=== PATIENT | male | born 1990 | race Caucasian/White ===

== ENCOUNTER 2017-10-18 02:44 | Inpatient (IN) | payer OTHER ==
[2017-10-18 04:35] LABS: ADD MAN DIFF? NO
[2017-10-18 04:39] LABS: WHITE BLOOD COUNT 9.4 10^3/ul (4.8-10.8)
[2017-10-18 04:39] LABS: BASOPHILS % 0.4 % (0.0-2.0); EOSINOPHILS # 0.1 10^3/ul (0.0-0.5); EOSINOPHILS % 0.5 % (0.0-7.0); HEMATOCRIT 46.2 % (42.0-52.0); HEMOGLOBIN 16.1 g/dl (14.0-18.0); LYMPHOCYTES # 2.3 10^3/ul (0.8-2.9); LYMPHOCYTES % 24.8 % (15.0-51.0); MEAN CORPUSCULAR HEMOGLOBIN 30.1 pg (29.0-33.0); MEAN CORPUSCULAR HGB CONC 34.8 g/dl (32.0-37.0); MEAN CORPUSCULAR VOLUME 86.5 fl (82.0-101.0); MEAN PLATELET VOLUME 9.9 fl (7.4-10.4); MONOCYTES % 10.6 % (0.0-11.0); NEUTROPHILS % 63.5 % (39.0-77.0); PLATELET COUNT 154 10^3/UL (140-415); RED BLOOD COUNT 5.34 10^6/ul (4.70-6.10); RED CELL DISTRIBUTION WIDTH 12.7 % (11.5-14.5)
[2017-10-18 04:53] LABS: CREATINE KINASE 1152 IU/L (23-200)
[2017-10-18 04:57] LABS: ALANINE AMINOTRANSFERASE 80 IU/L (13-69); ALBUMIN 4.1 g/dl (3.3-4.9); ALBUMIN/GLOBULIN RATIO 1.41; ALKALINE PHOSPHATASE 95 IU/L (42-121); ANION GAP 15 (8-16); ASPARTATE AMINO TRANSFERASE 114 IU/L (15-46); BLOOD UREA NITROGEN 9 mg/dl (7-20); C-REACTIVE PROTEIN 3.4 mg/dl (0.0-0.9); CALCIUM 8.7 mg/dl (8.4-10.2); CARBON DIOXIDE 30 mmol/L (21-31); CHLORIDE 103 mmol/L (97-110); CREATININE 0.92 mg/dl (0.61-1.24); GLUCOSE 107 mg/dl (70-220); POTASSIUM 3.6 mmol/L (3.5-5.1); SODIUM 144 mmol/L (135-144)
[2017-10-18 05:05] LABS: CK INDEX 5.4
[2017-10-18] MEDS: SOD CHLORIDE 0.9% 1,000 ML IV ×2 (05:27→17:42)
[2017-10-18] MEDS: morphine 4 MG/ML VIAL IV (05:28)
[2017-10-18] MEDS: ASPIRIN 325 MG TAB PO ×4 (05:28→22:53)
[2017-10-18 06:37] LABS: ERYTHROCYTE SEDIMENTATION RATE 10 mm/Hr (0-15)
[2017-10-18] MEDS: ONDANSETRON 4 MG INJ IV (07:07)
[2017-10-18] MEDS: KETOROLAC 30 MG INJ IV (07:08)
[2017-10-18] MEDS: HYDROmorphONE 0.5 MG/0.5 ML SYG IV (07:09)
[2017-10-18 07:14] LABS: AMPHETAMINE/METHAMPHETAMINE Negative (NEGATIVE); BARBITURATES Negative (NEGATIVE); BENZODIAZEPINES Negative (NEGATIVE); CANNABINOIDS Negative (NEGATIVE); COCAINE Negative (NEGATIVE); OPIATES Positive (NEGATIVE)
[2017-10-18 08:37] LABS: HAAIG REFLEX REFLEX FILED
[2017-10-18] MEDS: COLCHICINE 0.6 MG TAB PO ×2 (09:00→10:49)
[2017-10-18 09:49] LABS: HIV 1&2 ANTIBODY NEGATIVE (NEGATIVE)
[2017-10-18 10:18] LABS: ERYTHROCYTE SEDIMENTATION RATE 12 mm/Hr (0-15)
[2017-10-18 10:41] LABS: C-REACTIVE PROTEIN 2.7 mg/dl (0.0-0.9)
[2017-10-18 11:21] LABS: HEPATITIS B SURFACE ANTIGEN NEGATIVE (NEGATIVE)
[2017-10-18 11:39] LABS: HEPATITIS B CORE ANTIBODY NEGATIVE (NEGATIVE); HEPATITIS C VIRAL ANTIBODY NEGATIVE (NEGATIVE)
[2017-10-18] MEDS ORDERED: METOPROLOL 50 MG TAB PO (12:30)
[2017-10-18] MEDS: PANTOPRAZOLE (EC) 40 MG TAB PO ×2 (12:58→17:42)
[2017-10-18] MEDS: METOPROLOL 50 MG TAB PO ×3 (13:00→23:24)
[2017-10-18] MEDS: ENOXAPARIN 100 MG/ML SYG SC (13:10)
[2017-10-18 13:43] LABS: CREATINE KINASE 2882 IU/L (23-200)
[2017-10-18 13:47] LABS: CK INDEX 5.1
[2017-10-18] MEDS: SOD CHLORIDE 0.9% 250 ML IV (16:30)
[2017-10-18 18:23] LABS: CREATINE KINASE 2494 IU/L (23-200)
[2017-10-18] MEDS: ATORVASTATIN 20 MG TAB PO (20:54)
[2017-10-18] MEDS: ACETAMINOPHEN 325 MG TAB PO (23:25)
[2017-10-19] MEDS: NITROGLYCERIN (SL) 0.4 MG TAB SL ×3 (00:10→00:21)
[2017-10-19] MEDS: morphine 2 MG INJ IV (00:31)
[2017-10-19] MEDS ORDERED: morphine 2 MG INJ IV ×2 (01:00→15:30)
[2017-10-19] MEDS ORDERED: ZOLPIDEM 5 MG TAB PO (01:00)
[2017-10-19 03:47] LABS: ADD MAN DIFF? NO
[2017-10-19 04:09] LABS: ANION GAP 14 (8-16); BLOOD UREA NITROGEN 6 mg/dl (7-20); CALCIUM 8.6 mg/dl (8.4-10.2); CARBON DIOXIDE 26 mmol/L (21-31); CHLORIDE 107 mmol/L (97-110); CREATININE 0.69 mg/dl (0.61-1.24); GLUCOSE 125 mg/dl (70-220); POTASSIUM 3.6 mmol/L (3.5-5.1); SODIUM 143 mmol/L (135-144)
[2017-10-19 04:10] LABS: BASOPHILS % 0.2 % (0.0-2.0); EOSINOPHILS % 0.4 % (0.0-7.0); HEMATOCRIT 42.4 % (42.0-52.0); HEMOGLOBIN 14.7 g/dl (14.0-18.0); LYMPHOCYTES # 2.7 10^3/ul (0.8-2.9); LYMPHOCYTES % 25.9 % (15.0-51.0); MEAN CORPUSCULAR HEMOGLOBIN 30.4 pg (29.0-33.0); MEAN CORPUSCULAR HGB CONC 34.7 g/dl (32.0-37.0); MEAN CORPUSCULAR VOLUME 87.8 fl (82.0-101.0); MEAN PLATELET VOLUME 10.2 fl (7.4-10.4); MONOCYTE # 0.7 10^3/ul (0.3-0.9); MONOCYTES % 6.6 % (0.0-11.0); NEUTROPHIL # 6.8 10^3/ul (1.6-7.5); NEUTROPHILS % 66.5 % (39.0-77.0); PLATELET COUNT 151 10^3/UL (140-415); RED BLOOD COUNT 4.83 10^6/ul (4.70-6.10); RED CELL DISTRIBUTION WIDTH 13.1 % (11.5-14.5)
[2017-10-19 04:10] LABS: PHOSPHORUS 3.2 mg/dl (2.5-4.9); WHITE BLOOD COUNT 10.2 10^3/ul (4.8-10.8)
[2017-10-19 05:44] LABS: MAGNESIUM 1.8 mg/dl (1.7-2.5)
[2017-10-19 05:44] LABS: CREATINE KINASE 4427 IU/L (23-200)
[2017-10-19 05:45] LABS: CK INDEX 4.4
[2017-10-19] MEDS: SOD CHLORIDE 0.9% 1,000 ML IV ×3 (05:46→18:35)
[2017-10-19] MEDS: ASPIRIN 325 MG TAB PO ×3 (05:47→21:20)
[2017-10-19] MEDS: ACETAMINOPHEN 500 MG TAB PO (05:48)
[2017-10-19] MEDS: PANTOPRAZOLE (EC) 40 MG TAB PO ×2 (05:48→18:33)
[2017-10-19] MEDS: METOPROLOL 50 MG TAB PO ×2 (05:49→11:51)
[2017-10-19] MEDS ORDERED: MAGNESIUM SULFATE 2 GM/50 ML 50 ML IVPB (10:30)
[2017-10-19] MEDS: POTASSIUM CHLORIDE (SR) 20 MEQ TAB PO (10:38)
[2017-10-19] MEDS: MAGNESIUM SULFATE 2 GM/50 ML 50 ML IVPB ×2 (10:38→15:40)
[2017-10-19] MEDS: COLCHICINE 0.6 MG TAB PO (10:38)
[2017-10-19 11:07] LABS: MAGNESIUM 1.9 mg/dl (1.7-2.5)
[2017-10-19 11:07] LABS: POTASSIUM 4.1 mmol/L (3.5-5.1)
[2017-10-19] MEDS ORDERED: METOPROLOL 5 MG INJ ×4 (11:24→13:29)
[2017-10-19] MEDS: METOPROLOL 5 MG INJ IV (11:30)
[2017-10-19] MEDS: SOD CHLORIDE 0.9% 500 ML IV (12:03)
[2017-10-19] MEDS: SOD CHLORIDE 0.9% 100 ML (13:45)
[2017-10-19] MEDS: IOHEXOL 350MG/ML 50 ML BTL (13:45)
[2017-10-19] MEDS: IOHEXOL 100 ML (13:45)
[2017-10-19] MEDS ORDERED: morphine LIQ (10 MG/5 ML) CUP PO (14:00)
[2017-10-19] MEDS: NITROGLYCERIN AEROSOL (4.9 GM) (15:10)
[2017-10-19 15:56] LABS: CK INDEX 5.1; CREATINE KINASE 2537 IU/L (23-200)
[2017-10-19] MEDS: METOPROLOL 25 MG TAB PO (21:00)
[2017-10-19] MEDS: ATORVASTATIN 20 MG TAB PO (21:19)
[2017-10-20] MEDS: SOD CHLORIDE 0.9% 1,000 ML IV ×2 (01:32→08:22)
[2017-10-20 05:50] LABS: ADD MAN DIFF? NO
[2017-10-20 05:56] LABS: WHITE BLOOD COUNT 7.7 10^3/ul (4.8-10.8)
[2017-10-20 05:56] LABS: BASOPHILS % 0.4 % (0.0-2.0); EOSINOPHILS # 0.1 10^3/ul (0.0-0.5); EOSINOPHILS % 1.8 % (0.0-7.0); HEMOGLOBIN 14.2 g/dl (14.0-18.0); LYMPHOCYTES % 39.1 % (15.0-51.0); MEAN CORPUSCULAR HEMOGLOBIN 30.3 pg (29.0-33.0); MEAN CORPUSCULAR HGB CONC 33.8 g/dl (32.0-37.0); MEAN CORPUSCULAR VOLUME 89.6 fl (82.0-101.0); MEAN PLATELET VOLUME 9.9 fl (7.4-10.4); MONOCYTE # 0.6 10^3/ul (0.3-0.9); MONOCYTES % 7.5 % (0.0-11.0); NEUTROPHIL # 3.9 10^3/ul (1.6-7.5); NEUTROPHILS % 50.9 % (39.0-77.0); PLATELET COUNT 171 10^3/UL (140-415); RED BLOOD COUNT 4.69 10^6/ul (4.70-6.10); RED CELL DISTRIBUTION WIDTH 12.9 % (11.5-14.5)
[2017-10-20] MEDS: PANTOPRAZOLE (EC) 40 MG TAB PO ×2 (06:00→17:59)
[2017-10-20] MEDS: ASPIRIN 325 MG TAB PO ×3 (06:00→21:00)
[2017-10-20 06:23] LABS: CREATINE KINASE 701 IU/L (23-200)
[2017-10-20 06:31] LABS: CK INDEX 3.6
[2017-10-20 06:42] LABS: CREATINE KINASE 685 IU/L (23-200)
[2017-10-20 06:48] LABS: ANION GAP 12 (8-16); BLOOD UREA NITROGEN 7 mg/dl (7-20); CALCIUM 8.2 mg/dl (8.4-10.2); CARBON DIOXIDE 25 mmol/L (21-31); CHLORIDE 111 mmol/L (97-110); CREATININE 0.72 mg/dl (0.61-1.24); GLUCOSE 97 mg/dl (70-220); POTASSIUM 3.9 mmol/L (3.5-5.1); SODIUM 144 mmol/L (135-144)
[2017-10-20] MEDS: METOPROLOL 25 MG TAB PO ×2 (08:22→20:05)
[2017-10-20] MEDS: COLCHICINE 0.6 MG TAB PO (08:22)
[2017-10-20 14:27] LABS: ANA SCREEN NEGATIVE (NEGATIVE)
[2017-10-20] MEDS: POTASSIUM CHLORIDE (SR) 20 MEQ TAB PO (16:05)
[2017-10-20] MEDS: MAGNESIUM SULFATE 2 GM/50 ML 50 ML IVPB (16:05)
[2017-10-20 19:41] LABS: NIL 0.03 IU/mL; QUANTIFERON(R)-TB GOLD NEGATIVE (NEGATIVE); TB-NIL 0.01 IU/mL
[2017-10-20] MEDS: ATORVASTATIN 20 MG TAB PO (20:05)
[2017-10-21] MEDS: PANTOPRAZOLE (EC) 40 MG TAB PO ×2 (05:47→18:00)
[2017-10-21] MEDS: ASPIRIN 325 MG TAB PO ×3 (05:47→21:22)
[2017-10-21 06:14] LABS: ADD MAN DIFF? NO
[2017-10-21 06:20] LABS: WHITE BLOOD COUNT 6.7 10^3/ul (4.8-10.8)
[2017-10-21 06:20] LABS: BASOPHILS % 0.4 % (0.0-2.0); EOSINOPHILS # 0.3 10^3/ul (0.0-0.5); EOSINOPHILS % 3.9 % (0.0-7.0); HEMATOCRIT 43.9 % (42.0-52.0); LYMPHOCYTES # 3.3 10^3/ul (0.8-2.9); LYMPHOCYTES % 48.3 % (15.0-51.0); MEAN CORPUSCULAR HEMOGLOBIN 30.2 pg (29.0-33.0); MEAN CORPUSCULAR HGB CONC 34.2 g/dl (32.0-37.0); MEAN CORPUSCULAR VOLUME 88.5 fl (82.0-101.0); MEAN PLATELET VOLUME 9.9 fl (7.4-10.4); MONOCYTE # 0.5 10^3/ul (0.3-0.9); MONOCYTES % 6.8 % (0.0-11.0); NEUTROPHIL # 2.7 10^3/ul (1.6-7.5); PLATELET COUNT 201 10^3/UL (140-415); RED BLOOD COUNT 4.96 10^6/ul (4.70-6.10); RED CELL DISTRIBUTION WIDTH 12.7 % (11.5-14.5)
[2017-10-21 06:59] LABS: CK INDEX 2.4; CREATINE KINASE 238 IU/L (23-200)
[2017-10-21 07:03] LABS: CK-MB 5.83 ng/ml (0.0-2.4)
[2017-10-21 07:05] LABS: ANION GAP 14 (8-16); BLOOD UREA NITROGEN 9 mg/dl (7-20); CALCIUM 8.6 mg/dl (8.4-10.2); CARBON DIOXIDE 24 mmol/L (21-31); CHLORIDE 110 mmol/L (97-110); CREATININE 0.69 mg/dl (0.61-1.24); GLUCOSE 92 mg/dl (70-220); PHOSPHORUS 3.1 mg/dl (2.5-4.9); POTASSIUM 3.8 mmol/L (3.5-5.1); SODIUM 144 mmol/L (135-144)
[2017-10-21] MEDS: COLCHICINE 0.6 MG TAB PO (08:26)
[2017-10-21] MEDS: METOPROLOL 25 MG TAB PO ×2 (08:27→19:59)
[2017-10-21] MEDS: ATORVASTATIN 20 MG TAB PO (20:00)
[2017-10-22] MEDS: ASPIRIN 325 MG TAB PO (06:11)
[2017-10-22] MEDS: PANTOPRAZOLE (EC) 40 MG TAB PO (06:11)
[2017-10-22 08:17] LABS: ADD MAN DIFF? NO
[2017-10-22 08:25] LABS: WHITE BLOOD COUNT 6.8 10^3/ul (4.8-10.8)
[2017-10-22 08:25] LABS: BASOPHIL # 0.1 10^3/ul (0.0-0.1); EOSINOPHILS # 0.3 10^3/ul (0.0-0.5); EOSINOPHILS % 3.7 % (0.0-7.0); HEMATOCRIT 44.8 % (42.0-52.0); HEMOGLOBIN 15.5 g/dl (14.0-18.0); LYMPHOCYTES # 2.8 10^3/ul (0.8-2.9); LYMPHOCYTES % 41.2 % (15.0-51.0); MEAN CORPUSCULAR HEMOGLOBIN 30.6 pg (29.0-33.0); MEAN CORPUSCULAR HGB CONC 34.6 g/dl (32.0-37.0); MEAN CORPUSCULAR VOLUME 88.5 fl (82.0-101.0); MEAN PLATELET VOLUME 9.9 fl (7.4-10.4); MONOCYTE # 0.4 10^3/ul (0.3-0.9); MONOCYTES % 6.3 % (0.0-11.0); NEUTROPHIL # 3.2 10^3/ul (1.6-7.5); NEUTROPHILS % 46.8 % (39.0-77.0); NUCLEATED RED BLOOD CELLS% 0.6 /100WBC (0.0-0.0); PLATELET COUNT 233 10^3/UL (140-415); RED BLOOD COUNT 5.06 10^6/ul (4.70-6.10); RED CELL DISTRIBUTION WIDTH 12.8 % (11.5-14.5)
[2017-10-22 08:44] LABS: ANION GAP 13 (8-16); BLOOD UREA NITROGEN 11 mg/dl (7-20); CALCIUM 8.9 mg/dl (8.4-10.2); CARBON DIOXIDE 29 mmol/L (21-31); CHLORIDE 105 mmol/L (97-110); CREATININE 0.87 mg/dl (0.61-1.24); GLUCOSE 89 mg/dl (70-220); MAGNESIUM 1.8 mg/dl (1.7-2.5); PHOSPHORUS 3.2 mg/dl (2.5-4.9); SODIUM 143 mmol/L (135-144)
[2017-10-22 08:47] LABS: CREATINE KINASE 84 IU/L (23-200)
[2017-10-22] MEDS: METOPROLOL 25 MG TAB PO (09:11)
[2017-10-22] MEDS: COLCHICINE 0.6 MG TAB PO (09:11)
[2017-10-22] MEDS: NAPROXEN 250 MG TAB PO (11:58)
== END 2017-10-22 12:35 | disposition home or self-care (01) | DRG 315 ==
LOC: FTE 02:44 → MS4 10-21 20:55 → ICU 10-19 14:08 → MS4 05:32
DX: I30.9 Acute pericarditis, unspecified (principal); M62.82 Rhabdomyolysis; I47.2 Ventricular tachycardia; R65.10 Systemic inflammatory response syndrome (SIRS) of non-infectious origin without acute organ dysfunction; Z79.82 Long term (current) use of aspirin
CPT/HCPCS: 71045; 75571; 75574; 80048; 80053; 80307; 82550; 82553; 82962; 83605; 83735; 84100; 84132; 84484; 85025; 85651; 86038; 86140; 86480; 86703; 86704; 86709; 86803; 87081; 87340; 93005; 93306